=== PATIENT | female | born 1980 | race Caucasian/White ===

== ENCOUNTER → 2020-08-11 | Outpatient (CLI) | payer BC, OTHER | LOC: EROP 12:26 | DX: Z20.822 Contact with and (suspected) exposure to COVID-19 (principal) | CPT/HCPCS: U0002 ==

== ENCOUNTER → 2021-07-14 | Outpatient (CLI) | payer BC | LOC: RAD 13:53 | DX: M54.42 Lumbago with sciatica, left side (principal); M25.552 Pain in left hip; M51.37 Other intervertebral disc degeneration, lumbosacral region | CPT/HCPCS: 72110; 73502 ==